=== PATIENT | male | born 1965 | race Caucasian/White ===

== ENCOUNTER → 2016-10-10 | Outpatient (CLI) | payer OTHER | END | disposition home or self-care (01) | LOC: LAB.O 08:55 | PROVIDERS: ATTEND Student in an Organized Health Care Education/Training Program | DX: E11.21 Type 2 diabetes mellitus with diabetic nephropathy (principal); E11.65 Type 2 diabetes mellitus with hyperglycemia; I10 Essential (primary) hypertension; N18.4 Chronic kidney disease, stage 4 (severe) ==

== ENCOUNTER → 2016-10-31 | Outpatient (CLI) | payer OTHER | LOC: LAB.O 09:26 | PROVIDERS: ATTEND Student in an Organized Health Care Education/Training Program | DX: E11.21 Type 2 diabetes mellitus with diabetic nephropathy (principal); N18.4 Chronic kidney disease, stage 4 (severe); I10 Essential (primary) hypertension ==

== ENCOUNTER → 2016-12-22 | Outpatient (CLI) | payer OTHER | END | disposition home or self-care (01) | LOC: LAB.O 11-03 07:51 | PROVIDERS: ATTEND Student in an Organized Health Care Education/Training Program | DX: E11.21 Type 2 diabetes mellitus with diabetic nephropathy (principal); I10 Essential (primary) hypertension; N18.4 Chronic kidney disease, stage 4 (severe); D63.1 Anemia in chronic kidney disease ==

== ENCOUNTER → 2016-12-29 | Outpatient (CLI) | payer OTHER | END | disposition home or self-care (01) | LOC: LAB.O 08:11 | PROVIDERS: ATTEND Student in an Organized Health Care Education/Training Program | DX: E11.21 Type 2 diabetes mellitus with diabetic nephropathy (principal); I12.9 Hypertensive chronic kidney disease with stage 1 through stage 4 chronic kidney disease, or unspecified chronic kidney disease; N18.4 Chronic kidney disease, stage 4 (severe) ==

== ENCOUNTER → 2016-12-30 | Outpatient (CLI) | payer OTHER | LOC: LAB.O 09:28 | PROVIDERS: ATTEND Student in an Organized Health Care Education/Training Program | DX: E11.21 Type 2 diabetes mellitus with diabetic nephropathy (principal); E11.65 Type 2 diabetes mellitus with hyperglycemia; N18.4 Chronic kidney disease, stage 4 (severe) ==

== ENCOUNTER → 2017-02-09 | Outpatient (CLI) | payer OTHER | END | disposition home or self-care (01) | LOC: LAB.O 01-29 10:03 | PROVIDERS: ATTEND Student in an Organized Health Care Education/Training Program | DX: E11.21 Type 2 diabetes mellitus with diabetic nephropathy (principal); I12.9 Hypertensive chronic kidney disease with stage 1 through stage 4 chronic kidney disease, or unspecified chronic kidney disease; N18.4 Chronic kidney disease, stage 4 (severe); E55.9 Vitamin D deficiency, unspecified; N25.81 Secondary hyperparathyroidism of renal origin; N39.0 Urinary tract infection, site not specified; D63.1 Anemia in chronic kidney disease ==

== ENCOUNTER → 2017-05-01 | Outpatient (CLI) | payer OTHER | END | disposition home or self-care (01) | LOC: LAB.O 09:42 | DX: N18.4 Chronic kidney disease, stage 4 (severe) (principal) ==

== ENCOUNTER → 2017-07-01 | Outpatient (CLI) | payer OTHER | END | disposition home or self-care (01) | LOC: LAB.O 08:55 | PROVIDERS: ATTEND Internal Medicine Nephrology | DX: N18.6 End stage renal disease (principal) ==

== ENCOUNTER → 2017-07-23 | Outpatient (CLI) | payer OTHER | END | disposition home or self-care (01) | LOC: LAB.O 10:02 | PROVIDERS: ATTEND Internal Medicine Nephrology | DX: N18.4 Chronic kidney disease, stage 4 (severe) (principal) ==

== ENCOUNTER 2018-04-19 15:21 | Emergency (ER) | payer BC, MEDICARE ==
[2018-04-19] MEDS ORDERED: HYDROcodone 5MG/APAP 325MG 1 EA TAB PO ONE (15:36)
--- NOTE | 2018-04-19 16:30 | CT ---
EXAM DESCRIPTION: Head CLINICAL HISTORY: head injury 2 days ago, mild confusion COMPARISON: None available TECHNIQUE: Multiple axial images of the head without contrast. Multiplanar reformatted images. This exam was performed according to our departmental dose-optimization program, which includes automated exposure control, adjustment of the mA and/or kV according to patient size and/or use of iterative reconstruction technique. FINDINGS: There is no CT evidence of intracranial hemorrhage, mass effect, or large territory infarction. The brain parenchyma and ventricles are normal. There are no abnormal extra-axial fluid collections. Calcific plaque in the visualized arteries. There is no acute calvarial defect. Moderate mucosal thickening throughout the paranasal sinuses. The mastoid air cells are clear. IMPRESSION: No CT evidence of an acute intracranial abnormality. Electronically signed by: Eliseo Huffman MD 04/19/2018 4:29 PM CDT
--- NOTE | 2018-04-19 16:41 | CT ---
EXAM DESCRIPTION: Cervical Spine CLINICAL HISTORY: head injury 2 days ago, mild confusion. Head and neck pain. COMPARISON: None Available. TECHNIQUE: Multiple axial images of the cervical spine without contrast. Multiplanar reformatted images. This exam was performed according to our departmental dose-optimization program, which includes automated exposure control, adjustment of the mA and/or kV according to patient size and/or use of iterative reconstruction technique. FINDINGS: Straightening of the normal cervical lordosis, which may be seen with positioning or muscle spasm. There is no acute fracture or destructive osseous lesion. Mild multilevel spondylitic changes in the cervical spine with mild multilevel disc narrowing from C5-C6 through C7-T1. Multilevel hypertrophic facet and uncovertebral spurring with mild to moderate bilateral neural foraminal stenosis at C5-C6. More mild stenoses at the remaining levels. Mild calcific plaque in the great vessels of the neck. The visualized lung apices are clear. IMPRESSION: 1. No CT evidence of an acute osseous abnormality in the cervical spine. 2. Mild multilevel spondylitic changes. 3. Straightening of the normal cervical lordosis, which may be seen with positioning or muscle spasm. Electronically signed by: Eliseo Huffman MD 04/19/2018 4:32 PM CDT
--- NOTE | 2018-04-19 17:37 | ED.PDOC ---
History of Present Illness - General Chief Complaint: Trauma Stated Complaint: head injury Time Seen by Provider: 04/19/18 15:34 Source: patient Exam Limitations: no limitations - History of Present Illness Initial Comments: the patient is a [id number] male presenting to emergency room secondary to dizziness and light sensitivity and very mild confusion and disorientation for the last couple of days. Several days ago he actually tripped and fell backwards and hit his head on the concrete. Aside from headache he felt fine at the time. His reports that over the last 24 hours he has been having a little more irritability and some mild neck pain as well as the headache and some very mild disorientation. He does take dialysis daily. He does do peritoneal dialysis. No fever. He has some lower abdominal discomfort at the abdominal wall that started after the fall. His peritoneal dialysis catheter appears to be in place. There is no generalized signs of peritonitis. No fever. Timing/Duration: unsure Severity: mild Improving Factors: nothing Worsening Factors: nothing Associated Symptoms: denies symptoms Allergies/Adverse Reactions: Allergies Penicillins Allergy (Verified 11/23/13 09:07) Home Medications: Ambulatory Orders Amlodipine Besylate [Norvasc] 10 mg PO DAILY 11/23/13 Ezetimibe [Zetia] 10 mg PO DAILY 11/23/13 Fosinopril Sodium [Monopril] 10 mg PO BID 11/23/13 HYDROcodone 5MG/APAP 325MG [[place] 5/325] 1 ea PO .Q4-6 HOURS #0 tab 11/23/13 Insulin Glargine [Lantus] 25 unit SC HS 11/23/13 Nebivolol HCl [Bystolic] 5 mg PO DAILY 11/23/13 Pregabalin [Lyrica] 50 mg PO BID #0 cap 11/23/13 Sulfa/Trimeth 800/160 (Ds) Tab [Bactrim Ds] 1 tab PO BID #0 tab 11/23/13 levoFLOXacin [Levaquin] 500 mg PO QD #0 tab 11/23/13 Review of Systems - Review of Systems Constitutional: States: malaise EENTM: States: no symptoms reported Respiratory: States: no symptoms reported Cardiology: States: no symptoms reported Gastrointestinal/Abdominal: States: see HPI Genitourinary: States: no symptoms reported Musculoskeletal: States: see HPI Skin: States: no symptoms reported Neurological: States: see HPI Endocrine: States: no symptoms reported All other Systems: No Change from Baseline Past Medical History (General) - Patient Medical History Hx Cardiac Disorders: Yes Hx Congestive Heart Failure: No Hx Pacemaker: No Hx Hypertension: Yes Hx Diabetes: Yes Hx Renal Disease: Yes Hx MRSA: No - Social History Hx Alcohol Use: No Hx Substance Use: No Hx Physical Abuse: No Hx Emotional Abuse: No Family Medical History - Family History Mother Family History: No Known Physical Exam - Physical Exam General Appearance: Alert, Comfortable, No apparent distress Eye Exam: bilateral normal Ears, Nose, Throat: hearing grossly normal, normal ENT inspection, normal pharynx Neck: full range of motion, other - mild diffuse paraspinal discomfort palpation. No step-off. No evidence of direct trauma of the neck. He does have an abrasion to the posterior occipital area. No underlying crepitus. No CSF or blood from the nares or ear canals. Respiratory: lungs clear, normal breath sounds, no respiratory distress, no accessory muscle use Cardiovascular/Chest: normal peripheral pulses, regular rate, rhythm Peripheral Pulses: radial,right: 2+, radial,left: 2+, dorsalis pedis,right: 2+, dorsalis pedis,left: 2+ Gastrointestinal/Abdominal: soft, other - peritoneal dialysis catheter in place without any evidence of infection. Lower abdominal muscular walldiscomfort consistent with a mild muscle strain. 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 CT scan of the head and cervical spine are reassuring. Laboratory work also appears to be reassuring. He does have a BUN of 70 and a creatinine of 9.5. He may need to do a couple of extra rounds of half dialysis to help him become less uremic as he is having some very mild confusion issues with the concussion. He needs to keep himself adequately hydrated. Other pain medications are being avoided at this point in order to prevent further confusion. ER warnings were given for his worsening. Keep routine follow-up with nephrology and his primary care doctor otherwise. - Results/Orders Results/Orders: head CT and CT scan of the cervical spine show no evidence of any acute trauma. He does have some mild straightening of the cervical spine. Laboratory Results - last 24 hr 04/19/18 04/19/18 04/19/18 16:11 16:11 16:28 WBC 8.5 RBC 3.80 L Hgb 11.8 L Hct 35.1 L MCV 92.4 MCH 31.0 MCHC 33.7 RDW 13.0 Plt Count 276 MPV 7.7 Absolute Neuts (auto) 6.00 Absolute Lymphs (auto) 1.30 Absolute Monos (auto) 0.60 Absolute Eos (auto) 0.40 Absolute Basos (auto) 0.10 Neutrophils % 71.1 Lymphocytes % 15.4 L Monocytes % 7.4 Eosinophils % 5.1 H Basophils % 1.0 Sodium 139 Potassium 4.7 Chloride 103 Carbon Dioxide 26 Anion Gap 14.7 BUN 71 H Creatinine 9.75 H* BUN/Creatinine Ratio 7.3 L Random Glucose 72 Serum Osmolality 296.9 H Calcium 8.5 Magnesium 2.6 H Total Bilirubin 0.4 AST 16 ALT 20 Alkaline Phosphatase 126 H Serum Total Protein 7.5 Albumin 4.5 Globulin 3.0 Albumin/Globulin Ratio 1.5 Amylase 90 Lipase 37 Urine Color Yellow Urine Appearance Clear Urine pH 7.0 Ur Specific Scott 1.020 Urine Protein 100 H Urine Glucose (UA) Negative Urine Ketones Negative Urine Blood Trace-intact H Urine Nitrite Negative Urine Bilirubin Negative Urine Urobilinogen 0.2 Ur Leukocyte Esterase Negative Urine RBC 0-1 Urine WBC 0-1 Ur Epithelial Cells 0-1 Amorphous Sediment 1+ Urine Bacteria Rare Departure - Departure Clinical Impression: Postconcussive syndrome, Uremia Disposition: Discharge to Home or Self Care Condition: Fair Departure Forms: ED Discharge - Pt. Copy, Patient Portal Self Enrollment Diet: regular diet Activity: increase activity as tolerated Referrals: Vinay Collins III, MD [Primary Care Provider] - 1-2 Weeks Home Medications: Ambulatory Orders Amlodipine Besylate [Norvasc] 10 mg PO DAILY 11/23/13 Ezetimibe [Zetia] 10 mg PO DAILY 11/23/13 Fosinopril Sodium [Monopril] 10 mg PO BID 11/23/13 HYDROcodone 5MG/APAP 325MG [[place] 5/325] 1 ea PO .Q4-6 HOURS #0 tab 11/23/13 Insulin Glargine [Lantus] 25 unit SC HS 11/23/13 Nebivolol HCl [Bystolic] 5 mg PO DAILY 11/23/13 Pregabalin [Lyrica] 50 mg PO BID #0 cap 11/23/13 Sulfa/Trimeth 800/160 (Ds) Tab [Bactrim Ds] 1 tab PO BID #0 tab 11/23/13 levoFLOXacin [Levaquin] 500 mg PO QD #0 tab 11/23/13 Additional Instructions: the patient a 52-year-old male presenting to the emergency room secondary to what appears to be a postconcussive syndrome. CT scan of the head and cervical spine are reassuring. Laboratory work also appears to be reassuring. He does have a BUN of 70 and a creatinine of 9.5. He may need to do a couple of extra rounds of half dialysis to help him become less uremic as he is having some very mild confusion issues with the concussion. He needs to keep himself adequately hydrated. Other pain medications are being avoided at this point in order to prevent further confusion. ER warnings were given for his worsening. Keep routine follow-up with nephrology and his primary care doctor otherwise.
[2018-04-19 17:43] VITALS: BP 139/90; O2SAT 98
[2018-04-19 17:48] VITALS: TEMP 98
== END 2018-04-19 17:48 | disposition home or self-care (01) ==
LOC: ER 15:21
DX: G44.309 Post-traumatic headache, unspecified, not intractable (principal); F07.81 Postconcussional syndrome; E11.22 Type 2 diabetes mellitus with diabetic chronic kidney disease; I12.0 Hypertensive chronic kidney disease with stage 5 chronic kidney disease or end stage renal disease; N18.6 End stage renal disease; M50.33 Other cervical disc degeneration, cervicothoracic region; R10.30 Lower abdominal pain, unspecified; Z99.2 Dependence on renal dialysis; Z79.4 Long term (current) use of insulin; Z79.899 Other long term (current) drug therapy